=== PATIENT | male | born 1960 | race Caucasian/White ===

== ENCOUNTER 2021-02-24 11:22 | Emergency (ER) | payer OTHER, SELFPAY ==
--- NOTE | ~2021-02-24 | CT_ITS ---
EXAMINATION: CT CHEST, ABDOMEN AND PELVIS WITHOUT CONTRAST. CT THORACIC AND LUMBAR SPINE WITHOUT CONTRAST (REFORMATS) CLINICAL INFORMATION: Reason for Exam Fall, right chest tenderness, thoracic spine tenderness COMPARISON: No pertinent prior studies are available for comparison TECHNIQUE: Multidetector volumetric imaging was performed from the thoracic inlet through the pubic symphysis without contrast Sagittal and coronal reformatted images were obtained on the technologist workstation. In addition, thin section, high resolution reconstruction, targeted reformatted images through the thoracic and lumbar spine were obtained with coronal and sagittal high resolution reformatted images as well. This CT examination was performed using dose optimization techniques as appropriate, variously including the following: *Automated exposure control *Adjustment of mA and/or kV according to patient size (this includes techniques or standardized protocols for targeted exams where dose is matched to indication/reason for exam; i.e. extremities or head) *Use of iterative reconstruction technique DLP: 1139 mGy-cm FINDINGS: CHEST: VASCULAR: The aorta is intact MEDIASTINUM: No mediastinal fluid or hematoma. No hilar or mediastinal lymphadenopathy. LUNG: No nodules, mass, or focal consolidation. PLEURA: Moderate emphysematous changes upper lung zones right greater than left. Right apical scarring. Approximately 10 mm right-sided lower lobe lateral subpleural well-defined homogeneous density noncalcified. Ill-defined nodule 7 mm right middle lobe lateral segment. Minor nonspecific pleural thickening right minor fissure anteriorly. CHEST WALL/AXILLA: Unremarkable. ABDOMEN/PELVIS : LIVER : The liver is normal in size, shape, and attenuation. Tiny low-density focus adjacent to the caudate lobe subcentimeter in size statistically benign nodule is a cyst or hemangioma No focal hepatic lesion or biliary ductal dilatation is present. GALLBLADDER, AND BILIARY TREE The gallbladder is unremarkable with no evidence of radiopaque gallstones, gallbladder wall thickening, or obvious pericholecystic inflammatory changes. PANCREAS: Normal; no mass or surrounding fluid. SPLEEN: Normal size. No focal lesion. ADRENAL GLANDS: Tiny bilateral nodules within the apex of the adrenal glands measuring up to 13 mm on the right and 14 mm on the left. These lesions measure single Hounsfield units strongly favoring adenomas. KIDNEYS AND URETERS: Dilated right renal central pelvic collecting system down to the UPJ favoring a chronic UPJ obstruction. There is nodular consistent with x2 lower pole calyces measuring approximately 6 and 4 mm each. Parapelvic cysts felt to be less likely. No perinephric collection. Minor perinephric stranding bilaterally.. URINARY BLADDER: Multiple diverticula noted. Tiny stone within this right cephalad diverticula measuring 3 mm.. Trabeculated bladder suspected. GASTROINTESTINAL TRACT: Moderate stool retention. No obstruction. No small bowel abnormality. No acute inflammatory changes. VASCULAR STRUCTURES: There is no evidence of aortic or iliac injury. The inferior vena cava is intact. LYMPH NODES: No lymphadenopathy. PELVIC VISCERA: Moderate prostate enlargement. FREE FLUID: None. ABDOMINAL WALL: Small fat-containing periumbilical hernia. OSSEOUS STRUCTURES AND THORACIC AND LUMBAR SPINE: No clavicle or scapula fracture. No displaced rib fracture seen. No sternal fracture seen. Normal sagittal alignment of the thoracic and lumbar spine. Vertebral body and disc heights are maintained; no compression fracture. Posterior elements intact. No sacral or pelvic fracture. The visualized hips are intact. CT/CT abdomen pelvis wo con IMPRESSION: No evidence of any gross traumatic findings on this nonenhanced study. Extensive incidental findings including pulmonary nodules largest measuring 10 mm right base laterally. See above. According to the UPDATED 2017 Fleischner Society recommendations, the advised follow-up imaging for a single solid nodule measuring 8 mm or greater is: Consider CT, PET/CT, or tissue sampling at 3 months.
--- NOTE | ~2021-02-24 | XR_ITS ---
EXAMINATION: XR ELBOW, RIGHT CLINICAL INFORMATION: Pain. Abrasion. Rule out fracture. COMPARISON: None TECHNIQUE: AP, lateral, and oblique views of the right elbow. FINDINGS: The bones and soft tissues are normal. No fracture or joint effusion. Alignment is anatomic. Joint spaces are maintained. XR/XR elbow RT min 3V IMPRESSION: Normal right elbow.
--- NOTE | ~2021-02-24 | CT_ITS ---
EXAM: CT scan of the head and cervical spine. INDICATION: Reason for Exam Fall, cervical tenderness, rule out fracture TECHNIQUE: A noncontrast CT scan was performed from the skull base to the vertex. A noncontrast CT scan of the cervical spine was performed from the base of the skull through T1 at 2.5 mm and 1.25 mm collimation. Coronal and sagittal reformats were obtained at the acquisition workstation. This CT examination was performed using dose optimization techniques as appropriate, variously including the following: *Automated exposure control *Adjustment of mA and/or kV according to patient size (this includes techniques or standardized protocols for targeted exams where dose is matched to indication/reason for exam; i.e. extremities or head) *Use of iterative reconstruction technique DLP: 982 mGy-cm COMPARISON: None FINDINGS: Head: There is no evidence of acute intracranial hemorrhage or territorial infarction. Conteh-white matter differentiation is preserved. No abnormal mass effect or midline shift. No extra-axial fluid collections. No abnormal attenuation is demonstrated within the brain parenchyma. Scattered periventricular and deep white matter hypodensities consistent with microangiopathy. The ventricles and sulcal spaces are proportional without hydrocephalus. Proportional prominence of the ventricles and sulcal spaces. No acute osseous or soft tissue abnormalities. The mastoid air cells and visualized portions of the paranasal sinuses are well aerated. Cervical Spine: The atlantooccipital and atlantoaxial articulations remain well aligned. Straightening of the normal cervical lordosis. Otherwise, there is anatomic alignment of the vertebral bodies and posterior elements. No evidence of acute fracture or subluxation. There is early disc space narrowing at C4-C5 and C5-C6 with generalized endplate spurring. Dystrophic aspiration posterior to the mid cervical spine consistent sequela of an old injury. There is no prevertebral soft tissue swelling. The thyroid gland and remaining cervical soft tissues are normal in appearance. The lung apices demonstrate no abnormalities. CT/CT cervical spine wo con IMPRESSION: No acute intracranial pathology. No acute fracture subluxation cervical spine.
[2021-02-24 11:35] VITALS: BP 170/105; BP 188/89; PULSE 92; PULSE 96; RESP 18; TEMP 36.8; O2SAT 96; O2SAT 97; BMI 35.9
[2021-02-24 12:37] LABS: Glucose, Whole Blood 94 mg/dL (60-115)
[2021-02-24 12:50] VITALS: BP 181/102; PULSE 82; RESP 16; TEMP 36.4; O2SAT 97
--- NOTE | 2021-02-24 13:23 | ED.FALL ---
HPI - Fall General Chief Complaint: Fall Stated Complaint: FALL,? LOC,+CCOLLAR Time Seen by Provider: 02/24/21 13:10 Source: patient Mode of arrival: EMS Limitations: no limitations History of Present Illness HPI Narrative: 60-year-old male who presents emergency department for evaluation of a slip and fall. The patient states that he slipped ice falling backwards. He states that he struck his head on the pavement and walks consciousness. States that initially when he fell and hit his head he was dizzy and then faded to black. He is not certain how long he was unconscious for. He that he woke up in a puddle. The fall occurred around 10:00 a.m., 3-1/2 hours prior to my evaluation. Patient is currently complaining of a headache. He states that the pain is located in the back of his head where he struck pavement. The pain is a constant, throbbing pain which is 10/10. He had no associated nausea or vomiting. Denied dizziness or lightheadedness. He states he is also having pain in his upper back that radiates to his right chest. He states this pain is a constant, throbbing pain which is 10/10 and is worse with movement. He denied shortness of breath, weakness, numbness or loss of bowel or bladder control. He is complaining of pain in his right elbow which he believes he struck on the pavement as well. 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 Related Data Previous Rx's Medication Instructions Recorded cyclobenzaprine 10 mg tablet 10 mg PO TID PRN #15 tab 02/24/21 Allergies Allergy/AdvReac Type Severity Reaction Status Date / Time No Known Allergies Allergy Verified 02/24/21 13:30 Review of Systems Review of Systems: Yes all other systems are reviewed and are negative FOR[facility]LY [facility] Past Medical History FOR[facility] Narrative: Past medical history: Diabetes mellitus, hypertension, sleep apnea. Past surgical history: Patient states he required a bladder stent in the past which was eventually removed. Social history: The patient is a tractor trailer truck driver. He denies tobacco use, he is a former smoker quit 20 years ago. He denies alcohol and drug use. Medical History (Updated 02/24/21 @ 16:59 by Joaquin Kang MD) Diabetes HTN (hypertension) Social History Social History Advance Directives: No Advance Directives Information Provided: No Physical Exam Vital Signs: Vital Signs: Last Vital Signs Temp 97.6 F 02/24/21 12:50 Pulse 78 02/24/21 14:48 Resp 20 02/24/21 15:04 BP 178/95 H 02/24/21 14:48 Pulse Ox 98 02/24/21 14:48 BMI result Body Mass Index 35.9 Const: Other: Awake, alert, male patient, very pleasant and cooperative, he does not appear to be in distress, he answers all questions appropriately. HENMT: Other: The patient has an abrasion to the a occipital area of his scalp with a hematoma in this area, the area is tender to palpation. Ears: external ears normal General nose exam: Normal external nose present Face and sinus: Yes normal facial exam Mouth: Normal oral and palatal mucosa present Throat: Yes posterior oropharynx normal Eyes: General: appearance normal, both eyes and all related structures Pupils: Equal, round and reactive pupils present Neck: Other: The patient has tenderness with palpation of his cervical spine as well as trapezius muscles bilaterally Chest: Other: Patient has tenderness with palpation of his anterior, lateral and posterior right chest wall with no ecchymosis or crepitus noted. Resp: Effort & Inspection: normal respiratory effort and able to speak in complete sentences Auscultation: clear to auscultation bilaterally Cardio: Rate: regular rate Rhythm: regular rhythm Heart sounds: S1 normal heart sound present, S2 normal heart sound present and no murmurs GI: Inspection: Yes obesity Palpation (GI): Soft to palpation, Tenderness to palpation present (GI) in the LLQ (Moderate) and in the RLQ (Moderate) and no guarding Auscultation: normal bowel sounds Back/Spine/Pelvis: Other: The patient has tenderness with palpation of his thoracic spine as well as his paraspinal muscles in the thoracic region. Skin: General skin exam: no rashes or lesions noted Neuro: Cranial nerves: Yes CN's II-XII intact bilaterally and Yes Equal, round and reactive pupils present Cognition (Neuro): normal cognition Motor exam (neuro): 5/5 motor strength present throughout Extrem: Other: Patient has an abrasion to his right elbow with full range of motion of the elbow without any limitations. Psych: Appearance: grossly normal Speech and movement: Normal speech and movement present Affect: normal affect Attitude: cooperative Thought process: Normal thought process present Thought content: Normal thought content present Course Course Course Narrative: 60-year-old male who presents emergency department for evaluation falling backwards from a standing position after slipping on ice. The patient did strike his head and reports loss of consciousness. Patient is currently complaining of headache, neck, upper back and chest pain. Examination did reveal an abrasion to the back of his head with tenderness with palpation of this area, tenderness with palpation of his C-spine and thoracic spine as well as tenderness palpation of his right anterior, lateral and posterior chest wall. Patient has an abrasion with pain to his right elbow. Given these findings, I ordered a CT of the head, neck, chest and abdomen without contrast. Also obtain a right elbow x-ray. Patient was given morphine 4 mg IV for his pain. 1653: The patient had minimal relief of his pain with IV morphine. He was given a dose of Toradol 30 mg IV with some improvement of his pain. The CT of the patient's head and cervical spine was negative. CT scan of the chest abdomen and pelvis did not reveal any acute fractures or injuries related to the trauma. The patient has multiple incidental findings which I did review with him and I did give a printed copy of his CT scan report. The main incidental finding is an 8 mm lung nodule which requires repeat CT scan/PET scan in 3 months and I did discuss this with the patient. The patient was advised to take ibuprofen and Tylenol. He was also prescribed cyclobenzaprine 10 mg 1 pill 3 times a day. I did tell him that this medication will make him sleepy and that he cannot drive for at least 6 hours after he takes the medication. MDM - Fall Lab Data Labs: Lab Results 02/24/21 Range/Units 12:32 POC Glucose 94 (60-115) mg/dL Discharge Plan Discharge Clinical Impression: Closed head injury, Contusion of back wall of thorax, Abdominal pain, Contusion of elbow, right, Abrasion, Incidental pulmonary nodule, greater than or equal to 8mm Patient Disposition: Home, Self-Care Instructions: Head Injury (ED), Pulmonary Nodules (ED), Rib Contusion (ED) Additional Instructions: The CT scan of your head and neck revealed no abnormal findings. The CT scan of your chest, abdomen pelvis did not reveal any findings related to you falling/trauma. You do have multiple incidental findings which I reviewed with you. The main incidental finding that needs follow-up is a 8 mm nodule noted in your lung on the chest CT scan. The radiologist recommends that you get a repeat CT scan of your chest or other study as determined by your doctor in 3 months. Sometimes a nodule can be a sign of cancer and it is important that you follow-up with your doctor to make sure that the nodule does not change or that it goes away. Take Motrin (ibuprofen) 200 mg pills, 3 pills every 6 hours as needed for pain. Take Tylenol (acetaminophen) 500 mg pills, 2 pills every 6 hours as needed for pain. Take Flexeril (cyclobenzaprine) 10 mg pills, 1 pill every 8 hours as needed for pain or muscle spasm. This is a prescription medication. This medication will make you sleepy, therefore do not drive or work while taking this medication. Apply ice for 15 minutes to the area that hurts on your back, then apply a heating a pad on low for 15 minutes. Do this 4-6 times a day to help reduce the pain in your back. Continue with normal activities as tolerated since staying in bed and not moving around will make your pain worse. Please return to the Emergency Department or see your doctor immediately if your symptoms get worse or if you develop any new symptoms that are concerning you. Follow up with your doctor in 2 day. Please read the other printed discharge instructions Prescriptions: New cyclobenzaprine 10 mg tablet 10 mg PO TID PRN (Reason: pain, muscle spasm) Qty: 15 RF: 0 Stand Alone Forms: Work/School Release
[2021-02-24] MEDS: Diphth,Pertus(ACell),Tet Adult 0.5 ML SYRINGE IM (14:32)
[2021-02-24] MEDS: Lidocaine 4 % Patch ADH..PATCH 1 PATCH TRANSDERMA (14:43)
[2021-02-24 14:48] VITALS: BP 178/95; PULSE 78; RESP 20; O2SAT 98
--- NOTE | 2021-02-24 15:01 | PC.NURSE ---
PT unable to receive CT scan due to pain. MD ordered pain meds. This RN to insert IV for pain med administration.
[2021-02-24 15:04] VITALS: RESP 20
[2021-02-24] MEDS: Morphine Sulfate 4 MG/ML CARTRIDGE IVPUSH (15:04)
[2021-02-24] MEDS: ondansetron HCL 4 MG/2 ML VIAL IVPUSH (15:05)
[2021-02-24] MEDS: Ketorolac Tromethamine 30 MG/ML VIAL IVPUSH (16:49)
== END 2021-02-24 17:23 | disposition home or self-care (01) ==
PROVIDERS: Emergency Provider Emergency Medicine Emergency Medical Services
DX: S09.90XA Unspecified injury of head, initial encounter (principal); S20.229A Contusion of unspecified back wall of thorax, initial encounter; S50.11XA Contusion of right forearm, initial encounter; S00.91XA Abrasion of unspecified part of head, initial encounter; G44.309 Post-traumatic headache, unspecified, not intractable; M54.2 Cervicalgia; R10.9 Unspecified abdominal pain; M25.521 Pain in right elbow; R91.1 Solitary pulmonary nodule; W00.0XXA Fall on same level due to ice and snow, initial encounter; Y93.9 Activity, unspecified; Y92.9 Unspecified place or not applicable; Y99.9 Unspecified external cause status; Z79.899 Other long term (current) drug therapy
CPT/HCPCS: 70450; 71250; 72125; 73080; 74176; 82947; 90471; 90715; 96374; 96375; 99284; J1885; J2270; J2405